=== PATIENT | male | born 1945 | race Caucasian/White ===

== ENCOUNTER 2022-01-14 05:34 | Outpatient (CLI) | payer MEDICARE, OTHER ==
[~2022-01-14] VITALS: Ht 172.7 cm; Wt 108.2 kg
[2022-01-14] MEDS ORDERED: BUDE10.2 IH (11:09)
[2022-01-14] MEDS ORDERED: DOCU100C37 PO (11:09)
[2022-01-14] MEDS ORDERED: BENA-3 PO (11:09)
[2022-01-14] MEDS ORDERED: ASPI-999 PO (11:09)
[2022-01-14] MEDS ORDERED: TMSL.4C PO (11:09)
[2022-01-14] MEDS ORDERED: MONT-40 PO (11:09)
[2022-01-14] MEDS ORDERED: ASCO500C18 PO (11:09)
[2022-01-14] MEDS ORDERED: ZINC50TA11 PO (11:09)
[2022-01-14] MEDS ORDERED: TRAM50TA3 PO (11:09)
[2022-01-14] MEDS ORDERED: GABA-486 PO (11:09)
[2022-01-14] MEDS ORDERED: ATOR40TA70 PO (11:09)
[2022-01-14] MEDS ORDERED: FURO20TA4 PO (11:09)
[2022-01-14] MEDS ORDERED: APIX5TAB PO (11:09)
[2022-01-14] MEDS ORDERED: AMLO-251 PO (11:09)
[2022-01-14] MEDS ORDERED: FLUT50DI IH (11:09)
[2022-01-14] MEDS ORDERED: RT-ALBUINH IH (11:09)
[2022-01-14] MEDS ORDERED: MAGN400C PO (11:09)
[2022-01-14] MEDS ORDERED: POTA-179 PO (11:09)
[2022-01-14] MEDS ORDERED: MV-M1TAB20 PO (11:09)
[2022-01-14] MEDS ORDERED: CETI10CA PO (11:09)
[2022-01-14] MEDS ORDERED: MULT-593 PO (11:09)
[2022-01-14] MEDS ORDERED: ALPR0.5T7 PO (11:09)
[2022-01-14] MEDS ORDERED: VIT1CAPS44 PO (11:09)
[2022-01-14] MEDS ORDERED: DILT240C87 PO (11:09)
== END 2022-01-14 14:23 | disposition home or self-care (01) ==
LOC: PREOP 05:34
PROVIDERS: ATTEND Surgery
DX: Z01.818 Encounter for other preprocedural examination (principal)

== ENCOUNTER 2022-01-21 08:49 | Day surgery (SDC) | payer MEDICARE, OTHER ==
[~2022-01-21] VITALS: Ht 173 cm; Wt 108.0 kg
[~2022-01-21 08:49] MED LIST: ALPR0.5T7 PO; AMLO-251 PO; APIX5TAB PO; ASCO500C18 PO; ASPI-999 PO; ATOR40TA70 PO; BENA-3 PO; BUDE10.2 IH; CETI10CA PO; DILT240C87 PO; DOCU100C37 PO; FLUT50DI IH; FURO20TA4 PO; GABA-486 PO; MAGN400C PO; MONT-40 PO; MULT-593 PO; MV-M1TAB20 PO; POTA-179 PO; RT-ALBUINH IH; TMSL.4C PO; TRAM50TA3 PO; VIT1CAPS44 PO; ZINC50TA11 PO
[2022-01-21] MEDS ORDERED: LACTATED RINGERS 1,000 ML IV STA ×2 (09:07→09:11)
[2022-01-21] MEDS ORDERED: LIDOCAINE JELLY 2% 6 ML SYRINGE MM PRN (09:15)
[2022-01-21] MEDS ORDERED: PROPOFOL INJECTION 50 ML IV ONE (09:18)
[2022-01-21 09:20] VITALS: BP 136/65
--- NOTE | 2022-01-21 09:43 | Progress Note-Pre Operative ---
Pre-Operative Progress Note H&P Reviewed The H&P was reviewed, patient examined and no changes noted. Date Seen by Provider: Jan 21, 2022 Time Seen by Provider: : Date H&P Reviewed: Jan 21, 2022 Time H&P Reviewed: :30 Pre-Operative Diagnosis: rectal bleed VERA BARR MD Jan 21, 2022 09:43
[2022-01-21] MEDS ORDERED: ONDANSETRON 4 MG/2 ML (SDV) Z0FRAN IVP PRN (09:45)
[2022-01-21] MEDS ORDERED: ONDANSETRON 4 MG (ZOFRAN) ORAL DISSOLVE TAB PO PRN (09:45)
--- NOTE | 2022-01-21 09:45 | Discharge Inst-Surgical ---
D/C Lap Instructions-MOMO Follow Up Activity as tolerated High Fiber Diet 25g or more per day Avoid Alcohol, Caffeine, Spicy [place] and Acid foods. Drink 64 fluid oz or more of fluids per day. Symptoms to Report: Fever over 101 degree F, Nausea/Vomiting If any problems/questions: Contact your physician or go to Emergency Room VERA BARR MD Jan 21, 2022 09:45
[2022-01-21 10:10] VITALS: BP 132/70
[2022-01-21 10:15] VITALS: BP 112/55
--- NOTE | 2022-01-21 10:20 | Anesthesia-General Post-Op ---
MAC Patient Condition Mental Status/LOC: Same as Preop Cardiovascular: Satisfactory Nausea/Vomiting: Absent Respiratory: Satisfactory Pain: Controlled Complications: Absent Post Op Complications Complications None Follow Up Care/Instructions Patient Instructions None needed. Anesthesiology Discharge Order Discharge Order Patient is doing well, no complaints, stable vital signs, no apparent adverse anesthesia problems. No complications reported per nursing. WINDY PRICE CRNA Jan 21, 2022 10:20
[2022-01-21 10:35] VITALS: BP 132/77
--- NOTE | 2022-01-21 10:38 | Progress Note-Post Operative ---
Post-Operative Progess Note Surgeon (s)/Remote Control Assembler (s) Surgeon VERA BARR MD Remote Control Assembler: none Pre-Operative Diagnosis rectal bleed Post-Operative Diagnosis chronic stage 3 ext and int hemorrhoids. Procedure & Operative Findings Date of Procedure 01/21/22 Procedure Performed/Findings colonoscopy with bx. Anesthesia Type mac Estimated Blood Loss Estimated blood loss (mL): minimal Specimens/Packing Specimens Removed splenic flexure polyp VERA BARR MD Jan 21, 2022 10:38
[2022-01-21 10:58] VITALS: BP 132/77
--- NOTE | 2022-01-21 14:53 | OPERATIVE REPORT ---
DATE OF SERVICE: 01/21/2022 PREOPERATIVE DIAGNOSES: Rectal bleed, small hyperplastic polyp at the hepatic flexure. POSTOPERATIVE DIAGNOSES: Chronic stage II to III external and internal hemorrhoids, mild sigmoid diverticulosis. PROCEDURE: Colonoscopy with polypectomy with hot biopsy forceps. SURGEON: Vera Barr MD. ANESTHESIA: Monitored anesthesia care. ESTIMATED BLOOD LOSS: Minimal. FINDINGS: Chronic stage II to III external and internal hemorrhoids, mild sigmoid diverticulosis. DISPOSITION: The patient tolerated the procedure well. INDICATIONS: The patient is a 76-year-old male referred over to us for rectal bleeding. He states that this visit has been occurring for the last month and occurs with as well as without a bowel movement. He does not report any abnormal masses as well as no perianal or rectal pain. His last colonoscopy was approximately 5 years ago. He is on Eliquis as well as aspirin on a daily basis. DESCRIPTION OF PROCEDURE: The patient was brought to the endoscopy suite, laid in the left lateral decubitus position. After adequate IV pain and sedative medications and monitored anesthesia care, a digital rectal examination was performed. Chronic between stage II and III external and internal hemorrhoids were identified, which were not actively edematous nor inflamed and no bleeding. There was a small amount of residual blood within the region; however, no active bleeding. Normal sphincter tone was felt and there were no palpable masses. Prostate gland was palpable and appeared normal. The endoscope was then intubated to the anus and rectum gently insufflated. The endoscope was then advanced through the valves of [place] of the rectum with no polyps or any neoplasms identified. Through the sigmoid colon, a mild sigmoid diverticulosis identified. The endoscope was then advanced through the remainder of the descending, transverse and ascending colon to the cecum, which were normal. There was a hyperplastic polyp identified at the hepatic flexure approximately 1 to 2 mm in size. This was biopsied and destroyed with forceps and electrocautery with visualization of good hemostasis. The endoscope was then advanced through the ascending colon to the cecum, which was normal. The endoscope was then slowly withdrawn while taking a second look and suctioning of residual air with no additional findings. The patient tolerated the procedure well. We will recommend the necessary dietary and lifestyle accommodation including addition of a fiber supplement, which should equal or exceed 30 grams daily as well as significant amounts of water to promote extremely soft stools on a daily basis as well as at least bowel movement every day to decrease the pressure on the hemorrhoidal plexus and decrease the risk of recurrent bleeding. If he is asymptomatic, he does not need another colonoscopy for another 10 years. Job ID: [id number] DocumentID: [id number] Dictated Date: 01/21/2022 10:15:50 Contact [employer] Date: 01/21/2022 14:52:38 Dictated By: VERA BARR MD
== END 2022-01-21 10:58 | disposition home or self-care (01) ==
LOC: ENDO 08:49
PROVIDERS: ATTEND Surgery
DX: K63.5 Polyp of colon (principal); K57.31 Diverticulosis of large intestine without perforation or abscess with bleeding; K64.2 Third degree hemorrhoids; K64.4 Residual hemorrhoidal skin tags; E66.9 Obesity, unspecified; Z68.36 Body mass index [BMI] 36.0-36.9, adult; Z79.01 Long term (current) use of anticoagulants; Z79.82 Long term (current) use of aspirin